=== PATIENT | male | born 1990 | race Caucasian/White ===

== ENCOUNTER 2016-11-05 22:12 | Emergency (ER) | payer SELFPAY ==
--- NOTE | 2016-11-06 00:37 | ED CLINICAL REPORT ---
Clinical Report - Physicians/Mid Levels [facility] [address] [place] [address] 11/05/2016 22:12 [id number] Time Seen: 22:47 Mar 12 2016. Arrived- By private vehicle. Historian- patient. HISTORY OF PRESENT ILLNESS Chief Complaint: "GOT THE SHAKES". Symptoms started today. Patient reports paresthesias back pain, headache after use of meth just prior to arrival. Reports his symptoms have been improving since he has arrived, this has occurred in the past. Denies any floaters or neck pain. Denies any trauma to the head. Denies any emesis. REVIEW OF SYSTEMS The patient has not had weight loss. No sweats, chest pain, skin abscess or joint pain. SOCIAL HISTORY History of IV drug use: methamphetamines. Has place to stay. ADDITIONAL NOTES The nursing notes have been reviewed. PHYSICAL EXAM Vital Signs: 11/05/2016 22:21 BP: 141/80. HR: 97. RR: 22. O2 saturation: 100%. Temp: 97.9 F. Pain level now: 9/10. Head: Head atraumatic. Eyes: Pupils equal, round and reactive to light. ENT: Moist mucous membranes. Neck: Normal inspection. CVS: Normal heart rate and rhythm. Heart sounds normal. Respiratory: No respiratory distress. No respiratory distress. No decreased air movement. Skin: Skin warm. Neuro: Alert. Oriented X 3. Mood/affect normal. Cranial nerves normal (as tested). No sensory deficit. PROGRESS AND PROCEDURES Course of Care: Patient recently uses meth, tachycardic, denies any symptoms in the ER now, after Tylenol and rest and sleep. No rash. No meningeal signs. Afebrile. At this haroon sharita acute signs of endocarditis, or acute systemic concerning febrile illness, and this patient discharged strict return precautions discussed. 11/06/2016 00:23 BP: 126/75. HR: 125. RR: 20. O2 saturation: 99%. Patient is stable. Physical exam findings are improved. Symptoms better. Patient/family counseled. Disposition: Discharged. Condition: good. 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 INSTRUCTIONS OTC Medications: Take OTC medications according to label instructions. Available over the counter. Acetaminophen (available over the counter): take according to label instructions. Motrin (available over the counter): take according to label instructions. Understanding of the discharge instructions verbalized. (Electronically signed by Iesha Boyd P.A.-C 11/06/2016 0:49)
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
--- NOTE | 2016-11-06 00:37 | ED ORDER SUMMARY ---
..... Patient: JEAN PAUL GUNTER OrderSheet [facility] VisitID: [id number] [address] [place] [address] 26y, M Registration Date/Time: 11/05/2016 ORDER SHEET Weight: 68.0 kg (stated) Allergies: Amoxicillin GENERAL ORDERS: Vitals (23:23 11/05/2016 Preethi Villasenor.AOphelia-C) (Ack 23:25 Earnest) (23:26 Yamilet) MEDICATION ORDERS: Acetaminophen PO 650 mg (NOW) (22:36 11/05/2016 Preethi Villasenor.A.-C) (22:39 Louis Yeh) IV FLUIDS: ORDER SHEET NOTES: [Electronically signed by Iesha Boyd P.A.-C (00:49 11/06/2016)] [Electronically signed by Rylee Bello R.N. (00:50 11/06/2016)] [Electronically locked/signed by Rylee Bello R.N. (00:50 11/06/2016)]
--- NOTE | 2016-11-06 00:37 | ED ORDER SUMMARY ---
..... Patient: JEAN PAUL GUNTER OrderSheet [facility] VisitID: [id number] [address] [place] [address] 26y, M Registration Date/Time: 11/05/2016 ORDER SHEET Weight: 68.0 kg (stated) Allergies: Amoxicillin GENERAL ORDERS: Vitals (23:23 11/05/2016 Preethi Villasenor.AOphelia-C) (Ack 23:25 Earnest) (23:26 Yamilet) MEDICATION ORDERS: Acetaminophen PO 650 mg (NOW) (22:36 11/05/2016 Preethi Villasenor.A.-C) (22:39 Louis Yeh) IV FLUIDS: ORDER SHEET NOTES: [Electronically signed by Iesha Boyd P.A.-C (00:49 11/06/2016)] [Electronically signed by Rylee Bello R.N. (00:50 11/06/2016)] [Electronically locked/signed by Rylee Bello R.N. (00:50 11/06/2016)]
--- NOTE | 2016-11-06 00:37 | ED CLINICAL REPORT ---
Clinical Report - Physicians/Mid Levels [facility] [address] [place] [address] 11/05/2016 22:12 [id number] Time Seen: 22:47 Mar 12 2016. Arrived- By private vehicle. Historian- patient. HISTORY OF PRESENT ILLNESS Chief Complaint: "GOT THE SHAKES". Symptoms started today. Patient reports paresthesias back pain, headache after use of meth just prior to arrival. Reports his symptoms have been improving since he has arrived, this has occurred in the past. Denies any floaters or neck pain. Denies any trauma to the head. Denies any emesis. REVIEW OF SYSTEMS The patient has not had weight loss. No sweats, chest pain, skin abscess or joint pain. SOCIAL HISTORY History of IV drug use: methamphetamines. Has place to stay. ADDITIONAL NOTES The nursing notes have been reviewed. PHYSICAL EXAM Vital Signs: 11/05/2016 22:21 BP: 141/80. HR: 97. RR: 22. O2 saturation: 100%. Temp: 97.9 F. Pain level now: 9/10. Head: Head atraumatic. Eyes: Pupils equal, round and reactive to light. ENT: Moist mucous membranes. Neck: Normal inspection. CVS: Normal heart rate and rhythm. Heart sounds normal. Respiratory: No respiratory distress. No respiratory distress. No decreased air movement. Skin: Skin warm. Neuro: Alert. Oriented X 3. Mood/affect normal. Cranial nerves normal (as tested). No sensory deficit. PROGRESS AND PROCEDURES Course of Care: Patient recently uses meth, tachycardic, denies any symptoms in the ER now, after Tylenol and rest and sleep. No rash. No meningeal signs. Afebrile. At this haroon sharita acute signs of endocarditis, or acute systemic concerning febrile illness, and this patient discharged strict return precautions discussed. 11/06/2016 00:23 BP: 126/75. HR: 125. RR: 20. O2 saturation: 99%. Patient is stable. Physical exam findings are improved. Symptoms better. Patient/family counseled. Disposition: Discharged. Condition: good. 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 INSTRUCTIONS OTC Medications: Take OTC medications according to label instructions. Available over the counter. Acetaminophen (available over the counter): take according to label instructions. Motrin (available over the counter): take according to label instructions. Understanding of the discharge instructions verbalized. (Electronically signed by Iesha Boyd P.A.-C 11/06/2016 0:49)
--- NOTE | 2016-11-06 00:50 | ED MED RECONCILIATION SUMMARY ---
Patient: JEAN PAUL GUNTER Medication Reconciliation Report [facility] VisitID: [id number] [address] [place] [address] 26y, M Registration Date/Time: 11/05/2016 Weight: 68.0 kg Height/Length: 71 in. BMI: 20.9 ALLERGIES: Amoxicillin The patient's Home Medications are listed below: NONE. The source(s) of the original Home Medication information: patient The following Medications were given to the patient in the Emergency Department: Acetaminophen [PO] PO 650 mg, administered: 11/05/2016 10:39:00 PM The following Medications were prescribed to the patient: Take OTC medications according to label instructions. Available over the counter. -- Iesha Boyd, P.A.-C Acetaminophen (available over the counter): take according to label instructions. -- Iesha Boyd, P.A.-C Motrin (available over the counter): take according to label instructions. -- Iesha Boyd, P.A.-C
--- NOTE | 2016-11-06 00:50 | ED MED RECONCILIATION SUMMARY ---
Patient: JEAN PAUL GUNTER Medication Reconciliation Report [facility] VisitID: [id number] [address] [place] [address] 26y, M Registration Date/Time: 11/05/2016 Weight: 68.0 kg Height/Length: 71 in. BMI: 20.9 ALLERGIES: Amoxicillin The patient's Home Medications are listed below: NONE. The source(s) of the original Home Medication information: patient The following Medications were given to the patient in the Emergency Department: Acetaminophen [PO] PO 650 mg, administered: 11/05/2016 10:39:00 PM The following Medications were prescribed to the patient: Take OTC medications according to label instructions. Available over the counter. -- Iesha Boyd, P.A.-C Acetaminophen (available over the counter): take according to label instructions. -- Iesha Boyd, P.A.-C Motrin (available over the counter): take according to label instructions. -- Iesha Boyd, P.A.-C
--- NOTE | 2016-11-06 00:50 | ED MAR SUMMARY ---
..... Medication Administration Record [facility] [address] [place] [address] Patient: JEAN PAUL GUNTER Visit ID: [id number] 26y, M Weight: 68.0 kg Height/Length: 71 in BMI: 20.9 ALLERGIES: Amoxicillin Given 22:39 11/05/2016 Marvin Barton R.N. Medication Administered: ACETAMINOPHEN [PO] (APAP), Dose: 650 mg Tablets PO. Medication Ordered: Acetaminophen PO 650 mg (NOW).
--- NOTE | 2016-11-06 00:50 | ED DISCHARGE INSTRUCTIONS ---
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 INSTRUCTIONS OTC Medications: Take OTC medications according to label instructions. Available over the counter. Acetaminophen (available over the counter): take according to label instructions. Motrin (available over the counter): take according to label instructions. Understanding of the discharge instructions verbalized. (Electronically signed by Iesha Boyd P.A.-C 11/06/2016 0:49)
--- NOTE | 2016-11-06 00:50 | ED DISCHARGE INSTRUCTIONS ---
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 INSTRUCTIONS OTC Medications: Take OTC medications according to label instructions. Available over the counter. Acetaminophen (available over the counter): take according to label instructions. Motrin (available over the counter): take according to label instructions. Understanding of the discharge instructions verbalized. (Electronically signed by Iesha Boyd P.A.-C 11/06/2016 0:49)
--- NOTE | 2016-11-06 00:50 | ED MAR SUMMARY ---
..... Medication Administration Record [facility] [address] [place] [address] Patient: JEAN PAUL GUNTER Visit ID: [id number] 26y, M Weight: 68.0 kg Height/Length: 71 in BMI: 20.9 ALLERGIES: Amoxicillin Given 22:39 11/05/2016 Marvin Barton R.N. Medication Administered: ACETAMINOPHEN [PO] (APAP), Dose: 650 mg Tablets PO. Medication Ordered: Acetaminophen PO 650 mg (NOW).
== END 2016-11-06 00:44 | disposition home or self-care (01) ==
LOC: ED SRH 22:12
DX: F15.122 Other stimulant abuse with intoxication with perceptual disturbance (principal)